=== PATIENT | female | born 1990 | race African-American/Black ===

== ENCOUNTER → 2018-10-31 | Outpatient (REF) | payer OTHER | LOC: M SFHCLERA 15:52 | PROVIDERS: ATTEND Nurse Practitioner Family | DX: R53.81 Other malaise (principal) ==

== ENCOUNTER 2018-12-02 14:36 | Emergency (ER) | payer OTHER ==
[~2018-12-02] VITALS: Ht 165.1 cm; Wt 73.6 kg
[2018-12-02] MEDS ORDERED: TOPA1TAB PO (14:45)
[2018-12-02] MEDS ORDERED: FIORCAP3 PO (14:45)
[2018-12-02] MEDS ORDERED: FOLI1TAB11 PO (14:45)
[2018-12-02] MEDS ORDERED: LITH1TAB PO (14:45)
[2018-12-02] MEDS ORDERED: LEXA1TAB2 PO (14:45)
[2018-12-02] MEDS ORDERED: KETOROLAC 60 MG/2 ML VIAL (J1885) IM ONE (15:15)
[2018-12-02] MEDS ORDERED: KETO10TAB PO (15:55)
[2018-12-02 16:28] VITALS: BP 122/64
--- NOTE | 2018-12-03 09:18 | REP ---
Right scapula two views : There is no fracture or dislocation. Mineralization and joint spaces are normal. There are no calcifications or foreign bodies. Impression: Negative right scapula . Electronically Signed by Сергей Webster MD 12/02/2018 03:48 P
--- NOTE | 2018-12-03 09:18 | REP ---
PA and lateral chest: There are no comparisons. The lung cummings are clear. The cardiac size is normal. The malka, mediastinum, and skeletal structures are unremarkable. Impression: Negative PA and lateral chest. Electronically Signed by Сергей Webster MD 12/02/2018 03:49 P
== END 2018-12-02 16:29 | disposition home or self-care (01) ==
LOC: M ED 14:36
DX: M25.511 Pain in right shoulder (principal); F32.9 Major depressive disorder, single episode, unspecified; F41.9 Anxiety disorder, unspecified; G43.909 Migraine, unspecified, not intractable, without status migrainosus; Z79.899 Other long term (current) drug therapy; Z88.5 Allergy status to narcotic agent; Z88.6 Allergy status to analgesic agent
CPT/HCPCS: 71046; 73010; 81001; 81025; 96372; 99284; J1885

== ENCOUNTER 2019-03-06 09:01 | Emergency (ER) | payer OTHER ==
[~2019-03-06] VITALS: Ht 165.1 cm; Wt 65.0 kg
[~2019-03-06 09:01] MED LIST: FIORCAP3 PO; FOLI1TAB11 PO; KETO10TAB PO; LEXA1TAB2 PO; LITH1TAB PO; TOPA1TAB PO
[2019-03-06] MEDS ORDERED: LAMO100T80 PO (09:07)
[2019-03-06] MEDS ORDERED: NS 1,000 ML IV ONE (09:45)
[2019-03-06 10:02] LABS: BASO % 0.7 % (0.0-1.0); EOS # 0.1 10^3/uL (0.0-0.50); EOS % 1.3 % (0.0-3.0); HEMATOCRIT 36.8 % (36.0-47.0); HEMOGLOBIN 12.1 g/dl (12.0-15.5); LYMPH # 1.4 10^3/uL (1.5-4.5); LYMPH % 26.4 % (24.0-44.0); MEAN CORPUSCULAR HEMOGLOBIN 29.7 pg (27.0-33.0); MEAN CORPUSCULAR HGB CONC 32.9 g/dl (32.0-36.5); MEAN CORPUSCULAR VOLUME 90.4 fl (80.0-96.0); MONO # 0.4 10^3/uL (0.0-0.8); MONO % 8.1 % (0.0-5.0); NEUTROPHILS # 3.4 10^3/uL (1.8-7.7); NEUTROPHILS % 63.3 % (36.0-66.0); PLATELET COUNT, AUTOMATED 400 10^3/uL (150-450); RED BLOOD COUNT 4.07 10^6/uL (4.00-5.40); WHITE BLOOD COUNT 5.3 10^3/uL (4.0-10.0)
[2019-03-06] MEDS ORDERED: LAMO25TA4 PO (10:03)
[2019-03-06] MEDS ORDERED: lamoTRIgine 25 MG TAB PO ONE (10:15)
[2019-03-06 10:36] LABS: BLOOD UREA NITROGEN 9 MG/DL (7-18); CALCIUM LEVEL 9.2 MG/DL (8.5-10.1); CARBON DIOXIDE LEVEL 28 MEQ/L (21-32); CHLORIDE LEVEL 104 MEQ/L (98-107); CPK CREATINE PHOSPHOKINASE 86 U/L (26-192); CREATININE FOR GFR 0.73 MG/DL (0.55-1.30); GLOMERULAR FILTRATION RATE > 60.0 (>60); GLUCOSE, FASTING 89 MG/DL (70-100); LITHIUM LEVEL < 0.20 MEQ/L (0.60-1.20); POTASSIUM SERUM 3.9 MEQ/L (3.5-5.1); SODIUM LEVEL 139 MEQ/L (136-145)
[2019-03-06] MEDS ORDERED: LAMI25TA PO (11:18)
[2019-03-06 11:28] VITALS: BP 149/75
--- NOTE | 2019-03-07 00:17 | ECGEPIP ---
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 Order Number: [id number] Reading MD: Zay Barrios Measurements Intervals [place] Rate: 68 P: 45 CT: 127 QRS: 66 QRSD: 94 T: 42 QT: 395 QTc: 421 Interpretive Statements SINUS RHYTHM WITH SINUS ARRHYTHMIA Comparison tracing not on file Electronically Signed on 03-07-2019 0:17:35 EDT by Zay Barrios
== END 2019-03-06 11:35 | disposition home or self-care (01) ==
LOC: M ED 09:01
DX: G40.909 Epilepsy, unspecified, not intractable, without status epilepticus (principal); Z79.899 Other long term (current) drug therapy; Z88.5 Allergy status to narcotic agent; Z88.8 Allergy status to other drugs, medicaments and biological substances

== ENCOUNTER 2019-06-04 14:19 | Emergency (ER) | payer OTHER ==
[~2019-06-04] VITALS: Ht 165.1 cm; Wt 75.4 kg
[~2019-06-04 14:19] MED LIST changes: +LAMI25TA PO; +LAMO100T80 PO; +LAMO25TA4 PO
[2019-06-04] MEDS ORDERED: DOXE25CA PO (14:37)
[2019-06-04] MEDS ORDERED: ASPIRIN 81 MG CHEW TABLET PO ONE (15:00)
[2019-06-04] MEDS ORDERED: GI COCKTAIL 50ML BTL(HYOSCYAMINE/MAALOX/LIDOCAINE VISCOUS)(1:3:1) PO ONE (15:00)
[2019-06-04] MEDS ORDERED: NS 1,000 ML IV ONE (15:00)
[2019-06-04 15:21] LABS: BASO % 0.4 % (0.0-1.0); EOS % 0.3 % (0.0-3.0); HEMATOCRIT 35.9 % (36.0-47.0); HEMOGLOBIN 12.2 g/dl (12.0-15.5); LYMPH # 1.9 10^3/uL (1.5-5.0); LYMPH % 25.6 % (24.0-44.0); MEAN CORPUSCULAR HEMOGLOBIN 29.8 pg (27.0-33.0); MEAN CORPUSCULAR VOLUME 87.6 fl (80.0-96.0); MONO # 0.5 10^3/uL (0.0-0.8); MONO % 6.4 % (0.0-5.0); NEUTROPHILS # 4.9 10^3/uL (1.5-8.5); PLATELET COUNT, AUTOMATED 370 10^3/uL (150-450); WHITE BLOOD COUNT 7.4 10^3/uL (4.0-10.0)
[2019-06-04 15:32] LABS: INR 1.24; PROTHROMBIN TIME 15.3 SECONDS (11.8-14.0)
[2019-06-04 15:34] LABS: D-DIMER QUANT 512.18 ng/ml (<500)
[2019-06-04 15:43] LABS: HCG, SERUM QUALITATIVE NEGATIVE (NEGATIVE)
[2019-06-04 15:52] LABS: ALBUMIN 3.7 GM/DL (3.2-5.2); ALT/SGPT 11 U/L (12-78); BILIRUBIN,DIRECT < 0.1 MG/DL (0.0-0.2); BILIRUBIN,TOTAL 0.3 MG/DL (0.2-1.0); BLOOD UREA NITROGEN 6 MG/DL (7-18); CALCIUM LEVEL 9.3 MG/DL (8.5-10.1); CARBON DIOXIDE LEVEL 25 MEQ/L (21-32); CHLORIDE LEVEL 107 MEQ/L (98-107); CK-MB VALUE MASS < 1.0 NG/ML (<3.6); CPK CREATINE PHOSPHOKINASE 107 U/L (26-192); CREATININE FOR GFR 0.79 MG/DL (0.55-1.30); FREE T4 1.08 NG/DL (0.76-1.46); GLOMERULAR FILTRATION RATE > 60.0 (>60); GLUCOSE, FASTING 84 MG/DL (70-100); LIPASE 46 U/L (73-393); MB/CK RELATIVE INDEX 0.93 (< OR =4); POTASSIUM SERUM 3.7 MEQ/L (3.5-5.1); SODIUM LEVEL 138 MEQ/L (136-145); THYROID STIMULATING HORMONE 0.712 uIU/ML (0.358-3.740); TOTAL PROTEIN 8.1 GM/DL (6.4-8.2); TROPONIN I < 0.02 NG/ML (< 0.10)
--- NOTE | 2019-06-04 16:31 | REP ---
Single view chest: 06/04/2019. Indication: Chest pain. Comparison: 12/02/2018. Findings: The lungs are clear. There is no pleural effusion or pneumothorax. The cardiomediastinal silhouette is unremarkable. Impression: Clear lungs. Electronically Signed by Luis Tijerina DO 06/04/2019 04:22 P
[2019-06-04 16:45] VITALS: BP 141/64
--- NOTE | 2019-06-05 10:03 | ECGEPIP ---
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
== END 2019-06-04 17:01 | disposition home or self-care (01) ==
LOC: M ED 14:19
DX: R00.2 Palpitations (principal); K21.9 Gastro-esophageal reflux disease without esophagitis; Z88.6 Allergy status to analgesic agent; Z79.899 Other long term (current) drug therapy